=== PATIENT | female | born 1975 | race African-American/Black ===

== ENCOUNTER 2018-04-24 05:50 | Inpatient (IN) ==
[2018-04-19 15:20] LABS: Basophils % 0.3 % (0.0-0.8); Eosinophils # 0.2 10*3/uL (0.0-0.87); Eosinophils % 2.5 % (0.00-10.9); Hematocrit 31.2 VOL% (35.7-47.0); Hemoglobin 9.6 GM/DL (12.0-16.0); Immature Granulocytes % 0.2 %; Immature Granulocytes Absolute 0.01 #; Lymphocytes # 2.1 10*3/uL (1.4-4.0); Lymphocytes % 32.4 % (21.3-54.2); Mean Corpuscular HGB Conc 30.8 GM/DL (32-36); Mean Corpuscular Hemoglobin 21 PG (27-34); Mean Corpuscular Volume 68.4 FL (87-102); Mean Platelet Volume 9.4 FL (9.6-12.0); Monocytes # 0.4 10*3/uL (0.11-0.8); Monocytes % 5.4 % (1.7-12.7); Neutrophils # 3.8 10*3/uL (1.4-7.4); Neutrophils % 59.2 % (38.7-73.9); Platelet Count 324 T/CUMM (130-400); Red Blood Count 4.56 MC/CUMM (3.8-5.5); Red Cell Distribution Width 20.1 % (9.3-17.3); White Blood Count 6.5 T/CUMM (4-12)
[2018-04-19 15:29] LABS: Apearance,Urine CLEAR (Clear); Bilirubin,Urine Negative (Negative); Blood, Urine Large mg/dL (Negative); Glucose,Urine (UA) Negative (Negative); Ketones,Urine Negative (Negative); Mucus,Urine Occasional /LPF (Occasional); Nitrite,Urine Negative (Negative); Protein,Urine Negative; RBC,Urine 1 /HPF (0-4); Squamous Epithelial Cell,Urine Occasional /HPF (0-10); Urine Color Yellow (Yellow); Urine Specific Gravity 1.011 (1.001-1.035); Urine Urobilinogen < 2.0 EU/DL (0.2-1.0); WBC,Urine 1 /HPF (0-6)
[2018-04-19 15:39] LABS: Calcium 8.7 MG/DL (8.5-10.1); Osmolality,Calculated 278.3 MOS/KG (273-304); PT Patient Result 10.2 SECS; Partial Thromboplastin Time 27.8 SECS (0-40); Potassium 3.4 MMOL/L (3.5-5.1)
[2018-04-24] MEDS ORDERED: ceFAZolin 1,000 MG in SYRINGE 1 EACH IV ONE (06:30)
[2018-04-24] MEDS ORDERED: DIAZEPAM 5 MG TABLET PO ONE (06:57)
[2018-04-24] MEDS ORDERED: FAMOTIDINE 20 MG TABLET PO ONE (06:57)
[2018-04-24] MEDS ORDERED: LACTATED RINGERS 1,000 ML IV SCH (07:00)
[2018-04-24] MEDS ORDERED: ceFAZolin 1,000 MG VIAL ONE (07:39)
[2018-04-24] MEDS ORDERED: FAMOTIDINE 20 MG TABLET ONE (07:39)
[2018-04-24] MEDS ORDERED: DIAZEPAM 5 MG TABLET ONE (07:39)
[2018-04-24] MEDS ORDERED: TISSUE ADHESIVE 1 EACH APPLICATOR TOP ONE (08:42)
[2018-04-24] MEDS ORDERED: METHYLENE BLUE 10 ML VIAL IV ONE (08:42)
[2018-04-24 11:57] LABS: Apearance,Urine CLEAR (Clear); Bacteria,Urine Occasional /HPF (Few); Bilirubin,Urine Negative (Negative); Blood, Urine Negative (Negative); Glucose,Urine (UA) Negative (Negative); Ketones,Urine Negative (Negative); Mucus,Urine Occasional /LPF (Occasional); Nitrite,Urine Negative (Negative); Protein,Urine Negative; RBC,Urine <1 /HPF (0-4); Squamous Epithelial Cell,Urine Occasional /HPF (0-10); Urine Color Yellow (Yellow); Urine Specific Gravity 1.009 (1.001-1.035); Urine Urobilinogen < 2.0 EU/DL (0.2-1.0); WBC,Urine <1 /HPF (0-6)
[2018-04-24] MEDS ORDERED: ACETAMINOPHEN 325 MG TABLET PO PRN (12:05)
[2018-04-24] MEDS ORDERED: BENZOCAINE/MENTHOL LOZENGE 18/BOX PO PRN (12:05)
[2018-04-24] MEDS ORDERED: DOCUSATE SODIUM 100 MG CAPSULE PO PRN (12:05)
[2018-04-24] MEDS ORDERED: MAGNESIUM HYDROXIDE SUSP 30 ML UDCUP PO PRN (12:05)
[2018-04-24] MEDS ORDERED: BISACODYL 10 MG SUPP RECTAL PRN (12:05)
[2018-04-24] MEDS ORDERED: LIDOCAINE 1% 5 ML VIAL ONE (12:11)
[2018-04-24] MEDS ORDERED: PROPOFOL 200 MG/20 ML VIAL IV ONE (12:11)
[2018-04-24] MEDS ORDERED: DEXAMETHASONE 10 MG/1 ML VIAL ONE (12:12)
[2018-04-24] MEDS ORDERED: GLYCOPYRROLATE 0.4 MG/2 ML VIAL ONE (12:12)
[2018-04-24] MEDS ORDERED: ONDANSETRON 4 MG/2 ML VIAL ONE ×2 (12:12→12:23)
[2018-04-24] MEDS ORDERED: MIDAZOLAM 2 MG/2 ML VIAL ONE (12:12)
[2018-04-24] MEDS ORDERED: SEVOFLURANE 1 UNIT/15 MINUTE INH ONE (12:12)
[2018-04-24] MEDS ORDERED: fentaNYL 100 MCG/2 ML VIAL ONE (12:12)
[2018-04-24] MEDS ORDERED: LACTATED RINGERS 2,000 ML IV ONE (12:13)
[2018-04-24] MEDS ORDERED: NEOSTIGMINE 10 MG/10 ML VIAL ONE (12:13)
[2018-04-24] MEDS ORDERED: ROCURONIUM 100 MG/10 ML VIAL IV ONE (12:13)
[2018-04-24] MEDS ORDERED: ACETAMINOPHEN 1,000 MG/100 ML VIAL IV ONE (12:13)
[2018-04-24] MEDS ORDERED: MORPHINE 10 MG/1 ML VIAL ONE (12:20)
[2018-04-24] MEDS ORDERED: ONDANSETRON 4 MG/2 ML VIAL IV PRN (12:20)
[2018-04-24] MEDS: MORPHINE 10 MG/1 ML VIAL IV PRN ×3 (12:21→12:31)
[2018-04-24] MEDS ORDERED: PROMETHAZINE 25 MG/1 ML VIAL IM PRN (13:45)
[2018-04-24] MEDS: MEPERIDINE 50 MG/1 ML VIAL IV PRN (14:03)
[2018-04-24] MEDS: ceFAZolin 1,000 MG in SYRINGE 1 EACH IV SCH (16:53)
[2018-04-24] MEDS ORDERED: ceFAZolin 1,000 MG in SYRINGE 1 EACH IV SCH (18:05)
[2018-04-24] MEDS: LACTATED RINGERS 1,000 ML IV SCH (19:44)
[2018-04-25] MEDS: ceFAZolin 1,000 MG in SYRINGE 1 EACH IV SCH (00:03)
[2018-04-25] MEDS: MEPERIDINE 50 MG/1 ML VIAL IV PRN ×2 (00:07→03:38)
[2018-04-25] MEDS: ONDANSETRON 4 MG/2 ML VIAL IV PRN ×2 (00:08→03:39)
[2018-04-25] MEDS: LACTATED RINGERS 1,000 ML IV SCH (04:38)
[2018-04-25 06:35] LABS: Basophils % 0.1 % (0.0-0.8); Hematocrit 29.2 VOL% (35.7-47.0); Hemoglobin 9.2 GM/DL (12.0-16.0); Immature Granulocytes % 0.4 %; Immature Granulocytes Absolute 0.05 #; Lymphocytes # 1.1 10*3/uL (1.4-4.0); Lymphocytes % 8.9 % (21.3-54.2); Mean Corpuscular HGB Conc 31.5 GM/DL (32-36); Mean Corpuscular Hemoglobin 21 PG (27-34); Mean Corpuscular Volume 67.3 FL (87-102); Mean Platelet Volume 10.1 FL (9.6-12.0); Monocytes # 0.7 10*3/uL (0.11-0.8); Monocytes % 5.5 % (1.7-12.7); Neutrophils # 10.3 10*3/uL (1.4-7.4); Neutrophils % 85.1 % (38.7-73.9); Platelet Count 358 T/CUMM (130-400); Red Blood Count 4.34 MC/CUMM (3.8-5.5); Red Cell Distribution Width 20.1 % (9.3-17.3); White Blood Count 12.1 T/CUMM (4-12)
[2018-04-25] MEDS: hydroCHLOROthiazide 12.5 MG CAPSULE PO SCH (09:39)
[2018-04-25] MEDS: ENOXAPARIN 40 MG/0.4 ML SYRINGE SUBCUT SCH (09:39)
[2018-04-25] MEDS: IBUPROFEN 800 MG TABLET PO PRN ×2 (10:09→23:46)
[2018-04-25] MEDS: oxyCODONE/ACETAMINOPHEN 5-325 MG TABLET PO PRN ×2 (10:10→23:45)
[2018-04-26 07:34] VITALS: BP 136/74
[2018-04-26] MEDS: hydroCHLOROthiazide 12.5 MG CAPSULE PO SCH (09:21)
[2018-04-26] MEDS: ENOXAPARIN 40 MG/0.4 ML SYRINGE SUBCUT SCH (09:23)
== END 2018-04-26 09:45 | disposition home or self-care (01) | DRG 519 ==
LOC: N.OR 05:50 → N.SDSINP 05:52 → N.OB 09:42
PROVIDERS: ADMIT Specialist; ATTEND Specialist